=== PATIENT | male | born 1990 | race Hispanic/Latino ===

== ENCOUNTER 2018-05-29 02:40 | Emergency (ER) | payer SELFPAY ==
[2018-05-29] MEDS ORDERED: NA CHLORIDE 0.9% 1,000 ML ONE (03:09)
[2018-05-29] MEDS ORDERED: METHYLPREDNISOLONE 125 MG INJ ONE (03:09)
[2018-05-29] MEDS ORDERED: CLINDAMYCIN 900MG/D5W 900 MG/50 ML IVPB IV ONE (03:09)
[2018-05-29 03:26] LABS: Absolute Monocytes 0.6 K/uL (0.1-1.3); Absolute Neutrophil 7.3 K/uL (1.8-8.0); Basophils % 0.9 % (0-1.3); Eosinophils % 0.3 % (0-4.4); Hematocrit 45.6 % (39.6-49.0); Lymphocytes % 19.9 % (15.3-44.8); MPV 8.8 fL (7.6-11.3); Monocytes % 5.9 % (3.3-12.3); RBC Red Blood Cell Count 5.21 M/uL (4.33-5.43)
[2018-05-29 04:12] LABS: BUN Blood Urea Nitrogen 19 mg/dL (7-18); Bicarbonate 23 mmol/L (21-32); Glucose Level 111 mg/dL (74-106); Sodium Level 138 mmol/L (136-145)
--- NOTE | 2018-05-29 04:17 | ER ---
Nurse's Notes [facility] Name: Yaw nAaya Age: 28 yrs Sex: Male : 1990 Arrival Date: 05/29/2018 Time: 02:43 Bed 7 Private MD: Diagnosis: Acute Uvulitis Presentation: 05/29 02:50 Presenting complaint: Patient states: throat pain started yesterday bought "tukol rr5 syrup" after i took it i felt , something stock on my throat. and vomited. 02:50 Transition of care: patient was not received from another setting of care. Onset: The rr5 symptoms/episode began/occurred acutely. Anaphylaxis evaluation, no signs or symptoms of anaphylaxis were noted. Onset of symptoms was May 27, 2018. 02:50 Method Of Arrival: Ambulatory rr5 02:50 Acuity: BENJAMIN 3 rr5 02:50 Risk Assessment: Do you want to hurt yourself or someone else? Patient reports no ca1 desire to harm self or others. Initial Sepsis Screen: Does the patient meet any 2 criteria? No. Patient's initial sepsis screen is negative. Does the patient have a suspected source of infection? Yes: Other: sore throat. Care prior to arrival: None. Triage Assessment: 03:05 General: Appears in no apparent distress. Behavior is calm, cooperative, appropriate ca1 for age. Pain: Complains of pain in Throat. 03:05 EENT: Throat is reddened. Neuro: Level of Consciousness is awake, alert, obeys ca1 commands, Oriented to person, place, time, situation. Cardiovascular: Heart tones S1 S2 present Capillary refill < 3 seconds Patient's skin is warm and dry. Rhythm is regular. Respiratory: Reports of like something is stuck in his throat. Airway is patent Trachea midline Respiratory effort is even, unlabored, Respiratory pattern is regular, Breath sounds are clear bilaterally. GI: Abdomen is round non-distended, Bowel sounds present X 4 quads. Abd is soft and non tender X 4 quads. : No signs and/or symptoms were reported regarding the genitourinary system. Derm: Skin is intact, is healthy with good turgor, Skin is pink, warm \\T\\ dry. Skin temperature is. Musculoskeletal: Circulation, motion, and sensation intact. Capillary refill < 3 seconds, Range of motion: intact in all extremities. Historical: - Allergies: 03:25 tukol syrup; rr5 - Home Meds: 03:10 lisinopril 20 mg oral tab once daily [Active]; amlodipine 10 mg tab once daily [Active];ca1 - PMHx: 03:10 Hypertension; ca1 - PSHx: 03:10 None; ca1 - Immunization history:: Flu vaccine is not up to date. - Social history:: Smoking status: Patient uses tobacco products. - Ebola Screening: : No symptoms or risks identified at this time. Screenin:10 Abuse screen: Denies threats or abuse. Denies injuries from another. Nutritional ca1 screening: No deficits noted. Tuberculosis screening: No symptoms or risk factors identified. Fall Risk None identified. Assessment: 03:10 General: Appears in no apparent distress. Behavior is calm, cooperative, appropriate ca1 for age. Pain: Complains of pain in throat Pain currently is 5 out of 10 on a pain scale. Quality of pain is described as Pain began 1 day ago. Neuro: Level of Consciousness is awake, alert, obeys commands, Oriented to person, place, time, situation, Cardiovascular: Heart tones S1 S2 present Capillary refill < 3 seconds Patient's skin is warm and dry. Rhythm is regular. Respiratory: Airway is patent Trachea midline Respiratory effort is even, unlabored, Respiratory pattern is regular, symmetrical, Breath sounds are clear bilaterally. GI: Abdomen is round non-distended, Bowel sounds present X 4 quads. Abd is soft and non tender X 4 quads. : No signs and/or symptoms were reported regarding the genitourinary system. EENT: Throat is reddened Reports sore throat.. Derm: Skin is intact, is healthy with good turgor, Skin is pink, warm \\T\\ dry. Derm: Skin temperature is warm. Musculoskeletal: Circulation, motion, and sensation intact. Capillary refill < 3 seconds, Range of motion: intact in all extremities. 04:08 Reassessment: Patient appears in no apparent distress at this time. Patient and/or ca1 family updated on plan of care and expected duration. Pain level reassessed. Patient is alert, oriented x 3, equal unlabored respirations, skin warm/dry/pink. Patient states feeling better. Vital Signs: 03:10 BP 148 / 95; Pulse 98; Resp 18; Temp 97.8; Pulse Ox 99% on R/A; Weight 127.01 kg; ca1 Height 5 ft. 7 in. (170.18 cm); Pain 4/10; 04:08 BP 147 / 74; Pulse 91; Resp 19; Pulse Ox 100% on R/A; ca1 03:10 Body Mass Index 43.85 (127.01 kg, 170.18 cm) ca1 ED Course: 02:43 Patient arrived in ED. es 02:46 Nilo Cline MD is Attending Physician. pkl 02:49 Ngozi Szymanski, DEJUAN is Primary Nurse. ca1 02:56 Triage completed. rr5 03:00 Arm band placed on. rr5 03:10 Patient has correct armband on for positive identification. Bed in low position. Call ca1 light in reach. Side rails up X 1. Pulse ox on. NIBP on. 03:15 Inserted saline lock: 20 gauge in left forearm, using aseptic technique. lt1 03:[address] via wheelchair. kw1 03:31 CT completed. Patient tolerated procedure well. Patient moved back from CT. kw1 03:32 CT Soft Tissue Neck W/contr In Process Unspecified. EDMS 04:16 Jessica Fried MD is Referral Physician. pkl 04:29 No provider procedures requiring assistance completed. IV discontinued, intact, ca1 bleeding controlled, No redness/swelling at site. Pressure dressing applied. Administered Medications: 03:14 Drug: SOLU-Medrol 125 mg Route: IVP; Site: left forearm; ca1 04:18 Follow up: Response: No adverse reaction; Marked relief of symptoms ca1 03:14 Drug: Clindamycin 900 mg Route: IVPB; Infused Over: 30 mins; Site: left forearm; ca1 04:19 Follow up: Response: No adverse reaction; IV Status: Completed infusion ca1 03:15 Drug: NS 0.9% 1000 ml Route: IV; Rate: 125 ml/hr; Site: left forearm; ca1 04:29 Follow up: Response: No adverse reaction; IV Status: Order to discontinue infusion ca1 Outcome: 04:17 Discharge ordered by . pkl 04:29 Discharged to home ambulatory, with family. ca1 04:29 Condition: stable 04:29 Discharge instructions given to patient, significant other, Instructed on discharge instructions, follow up and referral plans. medication usage, Demonstrated understanding of instructions, follow-up care, medications, Prescriptions given X 2. 04:30 Patient left the ED. ca1 Signatures: Dispatcher [employer] EDNilo Gong MD MD pkRamandeep Cadet Kimberly kw1 Dwayne Mitchell RN RN rr5 Ngozi Szymanski RN RN ca1 Sandy, Xin lt1 Corrections: (The following items were deleted from the chart) 03:25 03:10 Allergies: No Known Allergies; ca1 rr5 03:36 03:10 BP 148 / 95; Pulse 98bpm; Resp 18bpm; Pulse Ox 99% RA; Temp 97.8F; Pain 4/10; ca1 ca1
--- NOTE | 2018-05-29 04:17 | EDPHYS ---
Physician Documentation [facility] Name: Yaw Anaya Age: 28 yrs Sex: Male : 1990 Arrival Date: 05/29/2018 Time: 02:43 Bed 7 Private MD: ED Physician Nilo Cline HPI: 05/29 03:10 This 28 yrs old Male presents to ER via Ambulatory with complaints of Allergic pkl Reaction. 03:10 The patient presents with sore throat, dysphagia, of solids. The patient describes pkl throat pain as constant. Onset: The symptoms/episode began/occurred yesterday. Historical: - Allergies: 03:25 tukol syrup; rr5 - Home Meds: 03:10 lisinopril 20 mg oral tab once daily [Active]; amlodipine 10 mg tab once daily [Active];ca1 - PMHx: 03:10 Hypertension; ca1 - PSHx: 03:10 None; ca1 - Immunization history:: Flu vaccine is not up to date. - Social history:: Smoking status: Patient uses tobacco products. - Ebola Screening: : No symptoms or risks identified at this time. ROS: 03:10 Eyes: Negative for injury, pain, redness, and discharge. pkl 03:10 ENT: Positive for difficulty swallowing, sore throat. 03:10 Neck: Negative for stiffness. 03:10 Cardiovascular: Negative for chest pain. 03:10 Respiratory: Negative for cough, shortness of breath. 03:10 Abdomen/GI: Negative for abdominal pain, nausea, vomiting, and diarrhea. 03:10 Back: Negative for acute changes. 03:10 : Negative for urinary symptoms. 03:10 MS/extremity: Negative for acute changes. 03:10 Skin: Negative for rash. 03:10 Neuro: Negative for altered mental status. Exam: 03:10 Head/Face: Normocephalic, atraumatic. Eyes: Pupils equal round and reactive to light, pkl extra-ocular motions intact. Lids and lashes normal. Conjunctiva and sclera are non-icteric and not injected. Cornea within normal limits. Periorbital areas with no swelling, redness, or edema. 03:10 ENT: Posterior pharynx: Uvula: midline, edematous, erythema. 03:10 Neck: Exam negative for nuchal rigidity. 03:10 Chest/axilla: Exam negative for acute changes. 03:10 Respiratory: the patient does not display signs of respiratory distress, Respirations: normal, Breath sounds: are clear throughout. 03:10 Abdomen/GI: Exam negative for acute changes, Bowel sounds: normal, Palpation: abdomen is soft and non-tender, in all quadrants. 03:10 Back: Exam negative for acute changes. 03:10 : Exam negative for acute changes. 03:10 Musculoskeletal/extremity: Exam is negative for acute changes. 03:10 Skin: Exam negative for rash. 03:10 Neuro: Orientation: is normal, Mentation: is normal, Cranial nerves: grossly normal, Motor: is normal. Vital Signs: 03:10 BP 148 / 95; Pulse 98; Resp 18; Temp 97.8; Pulse Ox 99% on R/A; Weight 127.01 kg; ca1 Height 5 ft. 7 in. (170.18 cm); Pain 4/10; 04:08 BP 147 / 74; Pulse 91; Resp 19; Pulse Ox 100% on R/A; ca1 03:10 Body Mass Index 43.85 (127.01 kg, 170.18 cm) ca1 MDM: 02:46 Patient medically screened. pkl 04:16 Data reviewed: vital signs, nurses notes, lab test result(s), radiologic studies, CT pkl scan. 05/29 02:53 Order name: CBC with Diff; Complete Time: 03:53 pkl /02 02:53 Order name: Chem 7; Complete Time: 04:14 pkl / 02:53 Order name: Sed Rate; Complete Time: 03:53 pkl 05/29 02:53 Order name: CRP; Complete Time: 04:14 pkl / 02:53 Order name: CT Soft Tissue Neck W/contr pkl Administered Medications: 03:14 Drug: SOLU-Medrol 125 mg Route: IVP; Site: left forearm; ca1 04:18 Follow up: Response: No adverse reaction; Marked relief of symptoms ca1 03:14 Drug: Clindamycin 900 mg Route: IVPB; Infused Over: 30 mins; Site: left forearm; ca1 04:19 Follow up: Response: No adverse reaction; IV Status: Completed infusion ca1 03:15 Drug: NS 0.9% 1000 ml Route: IV; Rate: 125 ml/hr; Site: left forearm; ca1 04:29 Follow up: Response: No adverse reaction; IV Status: Order to discontinue infusion ca1 Disposition: 05/29/18 04:17 Discharged to Home. Impression: Acute Uvulitis. - Condition is Stable. - Prescriptions for Clindamycin HCl 300 mg Oral Capsule - take 1 capsule by ORAL route every 6 hours for 7 days; 28 capsule. - Work release form, Medication Reconciliation Form, Thank You Letter, Antibiotic Education, Prescription Opioid Use form. - Follow up: Jessica Fried MD; When: 1 - 2 days; Reason: Re-evaluation by your physician. - Problem is new. - Symptoms have improved. Signatures: Dispatcher [employer] EDMS Nilo Cline MD MD pkl Dwayne Mitchell RN RN rr5 Ngozi Szymanski RN RN ca1 Corrections: (The following items were deleted from the chart) 03:25 03:10 Allergies: No Known Allergies; ca1 rr5 04:30 04:17 05/29/2018 04:17 Discharged to Home. Impression: Acute Uvulitis. Condition is ca1 Stable. Forms are Medication Reconciliation Form, Thank You Letter, Antibiotic Education, Prescription Opioid Use. Follow up: Jessica Fried; When: 1 - 2 days; Reason: Re-evaluation by your physician. Problem is new. Symptoms have improved. pkl
--- NOTE | 2018-05-29 08:38 | RAD REPORT ---
EXAM DESCRIPTION: CT - Soft Tissue Neck W/Contr - 05/29/2018 6:31 am CLINICAL HISTORY: Throat pain, uvulitis A preliminary report was provided at the time of the study and reviewed prior to final report. TECHNIQUE: During dynamic enhancement using 100 milliliters nonionic IV contrast, axial 5 millimeter thick images of the neck were obtained. All CT scans are performed using dose optimization technique as appropriate and may include automated exposure control or mA/KV adjustment according to patient size. FINDINGS: Intracranial portion of the examination is unremarkable. Mastoid air cells are clear. Muco jordy thickening seen in the partially imaged sphenoid and right maxillary sinus. Uvula is thickened and edematous matching the clinical history. Remainder of the soft palate mildly p rominent as well. Adenoid tissue is mildly prominent along with mildly prominent tonsils. No preverte bral soft tissue thickening. No abscess or emergent finding seen. There is normal parapharyngeal fat. Epiglottis and larynx structures all within normal limits. No abn ormal lymphadenopathy. No abnormal lymphadenopathy. Small reactive lymph nodes are present in the bilateral neck. Parotid, s ubmandibular and thyroid gland tissues are unremarkable. No acute bone finding. No acute vascular fin ding. IMPRESSION: Infectious/inflammatory process involving the uvula and soft palate. Adenoid and tonsillar tissue is mildly prominent possibly involved as well. No abscess, suspicious lymphadenopathy or other emergent finding.
== END 2018-05-29 04:30 | disposition home or self-care (01) ==
LOC: ER 02:40
DX: K12.2 Cellulitis and abscess of mouth (principal); I10 Essential (primary) hypertension
CPT/HCPCS: 36415; 70491; 80048; 85025; 85652; 86140; 96365; 96375; 99284; J2930; J7030